=== PATIENT | female | born 1985 | race Caucasian/White ===

== ENCOUNTER 2016-07-06 10:23 | Emergency (ER) | payer OTHER ==
[~2016-07-06] VITALS: Ht 170.2 cm; Wt 140.9 kg
[2016-07-06 10:25] VITALS: TEMP 97.8
[2016-07-06] MEDS ORDERED: GLUCOPHAGE1000 MG PO (10:38)
[2016-07-06] MEDS ORDERED: VITAMIN D1000 IU (10:38)
[2016-07-06] MEDS ORDERED: FLEXERIL 1010 MG/TAB PO (11:41)
[2016-07-06] MEDS ORDERED: PREDNISONE20 MG PO (11:41)
[2016-07-06 12:15] VITALS: BP 131/66; PULSE 63
== END 2016-07-06 12:16 | disposition home or self-care (01) ==
LOC: COL.ER 10:23
DX: M46.1 Sacroiliitis, not elsewhere classified (principal); R51 Headache
CPT/HCPCS: J1885; J2360

== ENCOUNTER 2016-10-01 14:02 | Emergency (ER) | payer OTHER ==
[~2016-10-01] VITALS: Ht 170.2 cm; Wt 145.5 kg
[~2016-10-01 14:02] MED LIST: FLEXERIL 1010 MG/TAB PO; GLUCOPHAGE1000 MG PO; PREDNISONE20 MG PO; VITAMIN D1000 IU
[2016-10-01 14:05] VITALS: TEMP 98.2
[2016-10-01 14:55] LABS: PH 6 (5-8); URINE APPEARANCE Hazy; URINE BACTERIA None Seen /hpf; URINE BILIRUBIN Negative (NEGATIVE); URINE BLOOD 2+ (NEGATIVE); URINE COLOR Yellow; URINE GLUCOSE Negative (NEGATIVE); URINE KETONE Negative (NEGATIVE); URINE UROBILINOGEN Negative (NEGATIVE)
[2016-10-01 14:56] LABS: BASO % 0.3 % (0.0-2.0); GRAN # 4.1 (1.4-6.5); GRAN % 65.1 % (42.2-75.2); HEMATOCRIT 43.8 % (37.0-47.0); HEMOGLOBIN 14.6 g/dl (12.5-16.0); LYMPH # 1.6 (1.2-3.4); MEAN CELL VOLUME 91 fl (80.0-100.0); MEAN CORPUSCULAR HEMOGLOBIN 30 pg (27.0-31.0); MEAN CORPUSCULAR HGB CONC 33 g/dl (33.0-37.0); MEAN PLATELET VOLUME 10.5 fl (7.4-10.4); MONO # 0.5 (0.1-0.6); MONO % 8.4 % (1.7-9.3); PLATELET COUNT 238 K/mm3 (130-400); RED BLOOD COUNT 4.82 M/mm3 (4.10-5.30); REDCELL DISTRIBUTION WIDTH-CV 12.8 % (11.5-14.5); WHITE BLOOD COUNT 6.3 K/mm3 (4.8-10.8)
[2016-10-01 15:13] LABS: ADJUSTED CALCIUM 8.7 mg/dL (8.4-10.2); ALBUMIN 4.6 gm/dL (3.5-5.0); BILIRUBIN,TOTAL 0.6 mg/dL (0.0-1.0); CALCIUM 9.2 mg/dL (8.4-10.2); CREATININE, serum 0.66 mg/dL (0.52-1.25); POTASSIUM 4.1 mmol/L (3.4-5.0); TOTAL PROTEIN 7.7 gm/dL (6.4-8.2)
[2016-10-01] MEDS ORDERED: CEFTIN500 MG PO (16:39)
[2016-10-01 17:10] VITALS: BP 124/72; PULSE 73
== END 2016-10-01 17:14 | disposition home or self-care (01) ==
LOC: COL.ER 14:02
PROVIDERS: Emergency Medicine
DX: N39.0 Urinary tract infection, site not specified (principal)
CPT/HCPCS: J2765; J3010; J7030

== ENCOUNTER 2017-07-20 21:02 | Inpatient (IN) | payer OTHER ==
[~2017-07-20] VITALS: Ht 170.2 cm; Wt 160.2 kg
[~2017-07-20 21:02] MED LIST changes: +CEFTIN500 MG PO; +VITAMIN D 1001000 IU PO; -VITAMIN D1000 IU
[2017-07-20 21:09] VITALS: BP 131/76; PULSE 72; TEMP 97.8
[2017-07-21 00:45] VITALS: BP 132/65; PULSE 70; TEMP 98.3
[2017-07-21] MEDS ORDERED: GLUCOPHAGE500 MG/TAB PO (01:42)
[2017-07-21] MEDS ORDERED: AMOXICILLIN875 MG PO (01:44)
[2017-07-21] MEDS ORDERED: Birth Control PO (01:46)
[2017-07-21] MEDS ORDERED: anxiety med (01:47)
[2017-07-21] MEDS ORDERED: LEXAPRO20 MG PO (02:46)
[2017-07-21 03:22] VITALS: BP 114/46; PULSE 70; TEMP 98.3
[2017-07-21 06:45] LABS: BASO % 0.1 % (0.0-2.0); GRAN # 10.5 (1.4-6.5); GRAN % 88.3 % (42.2-75.2); HEMATOCRIT 38.5 % (37.0-47.0); HEMOGLOBIN 12.7 g/dl (12.5-16.0); LYMPH # 0.9 (1.2-3.4); LYMPH % 7.7 % (20.0-51.0); MEAN CELL VOLUME 92 fl (80.0-100.0); MEAN CORPUSCULAR HEMOGLOBIN 30 pg (27.0-31.0); MEAN CORPUSCULAR HGB CONC 33 g/dl (33.0-37.0); MEAN PLATELET VOLUME 10.6 fl (7.4-10.4); MONO # 0.4 (0.1-0.6); MONO % 3.6 % (1.7-9.3); PLATELET COUNT 250 K/mm3 (130-400); RED BLOOD COUNT 4.18 M/mm3 (4.10-5.30); REDCELL DISTRIBUTION WIDTH-CV 12.9 % (11.5-14.5)
[2017-07-21 06:59] LABS: CALCIUM 8.6 mg/dL (8.4-10.2); CREATININE, serum 0.54 mg/dL (0.52-1.25); POTASSIUM 4.1 mmol/L (3.4-5.0)
[2017-07-21 08:02] LABS: COLLECTION METHOD CLEAN CATCH
[2017-07-21 08:17] LABS: MUCOUS Present /lpf; PH 6 (5-8); URINE APPEARANCE Hazy; URINE BACTERIA Rare /hpf; URINE BILIRUBIN Negative (NEGATIVE); URINE BLOOD Negative (NEGATIVE); URINE COLOR Yellow; URINE GLUCOSE Negative (NEGATIVE); URINE KETONE Trace (NEGATIVE); URINE LEUKOCYTE ESTERASE Negative (NEGATIVE); URINE NITRATE Negative (NEGATIVE); URINE PROTEIN(semi-quant) 1+ (NEGATIVE); URINE UROBILINOGEN Negative (NEGATIVE)
[2017-07-21 08:26] LABS: TRICYCLIC ANTIDEPRESS URINE NEGATIVE
[2017-07-21 08:40] VITALS: BP 114/51; PULSE 73; TEMP 98.5
[2017-07-21 09:24] LABS: INR 1.1 (0.8-3.0); PROTHROMBIN TIME 12.6 SECONDS (9.7-12.8)
[2017-07-21 11:12] LABS: INFLUENZA A NEGATIVE; INFLUENZA B NEGATIVE
[2017-07-21] MEDS ORDERED: MONONESSA 35 MC1 TA1 (11:52)
[2017-07-21] MEDS ORDERED: ZOFRAN INJ4 MG/2 ML IV (15:07)
[2017-07-21 15:25] VITALS: BP 114/51; PULSE 73; TEMP 98.5
[2017-07-21 15:58] VITALS: BP 138/78; PULSE 68; TEMP 99.2
== END 2017-07-21 16:30 | disposition short-term general hospital (02) | DRG 65 ==
LOC: MEDICAL 21:02
PROVIDERS: Nurse Practitioner; Psychiatry & Neurology Neurology
DX: I63.9 Cerebral infarction, unspecified (principal); G95.89 Other specified diseases of spinal cord; M79.1 Myalgia; E28.2 Polycystic ovarian syndrome; R42 Dizziness and giddiness; G93.89 Other specified disorders of brain; F17.210 Nicotine dependence, cigarettes, uncomplicated; Z98.84 Bariatric surgery status
CPT/HCPCS: 99223-AI; A9585; J1644; J1885; J2405; J2550; J7030

== ENCOUNTER 2017-07-24 10:07 | Inpatient (IN) | payer OTHER ==
[~2017-07-24] VITALS: Ht 170.2 cm; Wt 161.5 kg
[~2017-07-24 10:07] MED LIST changes: +AMOXICILLIN875 MG PO; +Birth Control PO; +GLUCOPHAGE500 MG/TAB PO; +LEXAPRO20 MG PO; +MONONESSA 35 MC1 TA1; +ZOFRAN INJ4 MG/2 ML IV; +anxiety med
[2017-07-24] MEDS ORDERED: ELIQUIS 5MG PO ×2 (15:28→15:29)
[2017-07-24] MEDS ORDERED: LIPITOR 40MG TA40 MG PO (15:30)
[2017-07-24] MEDS ORDERED: LIDODERM 5% PATC1 EA TP (15:31)
[2017-07-24] MEDS ORDERED: REGLAN 10MG10 MG/TAB PO (15:33)
[2017-07-24] MEDS ORDERED: MELAT3MGTAB PO (15:34)
[2017-07-24] MEDS ORDERED: EMU OIL 1 ML1 ML (15:38)
[2017-07-24 15:41] VITALS: BP 114/62; PULSE 71; TEMP 98
[2017-07-24 18:00] VITALS: BP 124/67; PULSE 80; TEMP 97.7
[2017-07-24] MEDS ORDERED: ATIVAN 1MG T1 MG/TAB PO (21:07)
[2017-07-25 04:47] VITALS: BP 142/77; PULSE 71; TEMP 97.5
[2017-07-25 16:58] VITALS: BP 115/74; PULSE 76; TEMP 97.7
[2017-07-26 04:32] VITALS: BP 133/66; PULSE 81; TEMP 98.2
[2017-07-26 16:04] VITALS: BP 113/67; PULSE 87; TEMP 97.4
[2017-07-27 03:56] VITALS: BP 129/80; PULSE 87; TEMP 99
[2017-07-27 07:08] LABS: BASO % 0.3 % (0.0-2.0); EOS % 0.1 % (0-4.0); GRAN # 5.4 (1.4-6.5); HEMATOCRIT 38.9 % (37.0-47.0); HEMOGLOBIN 12.5 g/dl (12.5-16.0); LYMPH # 2.5 (1.2-3.4); LYMPH % 28.9 % (20.0-51.0); MEAN CELL VOLUME 94 fl (80.0-100.0); MEAN CORPUSCULAR HEMOGLOBIN 30 pg (27.0-31.0); MEAN CORPUSCULAR HGB CONC 32 g/dl (33.0-37.0); MEAN PLATELET VOLUME 10.5 fl (7.4-10.4); MONO # 0.6 (0.1-0.6); MONO % 7.2 % (1.7-9.3); PLATELET COUNT 246 K/mm3 (130-400); RED BLOOD COUNT 4.14 M/mm3 (4.10-5.30)
[2017-07-27 07:26] LABS: CALCIUM 8.9 mg/dL (8.4-10.2); CREATININE, serum 0.64 mg/dL (0.52-1.25); MAGNESIUM 1.7 mg/dL (1.6-2.3); POTASSIUM 4.1 mmol/L (3.4-5.0)
[2017-07-27 17:10] VITALS: BP 128/66; PULSE 93; TEMP 97.6
[2017-07-28 05:17] VITALS: BP 117/69; PULSE 100; TEMP 98.1
[2017-07-28 18:00] VITALS: BP 103/51; PULSE 61; TEMP 98.7
[2017-07-29 02:32] VITALS: BP 107/57; PULSE 94; TEMP 98.5
[2017-07-29 16:01] VITALS: BP 113/43; PULSE 61; TEMP 97.4
[2017-07-30 05:08] VITALS: BP 117/58; PULSE 83; TEMP 98.4
[2017-07-30 13:57] VITALS: BP 109/63
[2017-07-30 16:15] VITALS: BP 107/76; PULSE 100; TEMP 97.6
[2017-07-31 05:26] VITALS: BP 122/71; PULSE 90; TEMP 97.6
[2017-07-31 17:36] VITALS: BP 127/66; PULSE 98; TEMP 97.6
[2017-08-01 06:06] VITALS: BP 128/75; PULSE 90; TEMP 98.3
[2017-08-01 17:18] VITALS: BP 128/76; PULSE 100; TEMP 98.1
[2017-08-02 03:54] VITALS: BP 111/58; PULSE 87; TEMP 98.1
[2017-08-02 17:04] VITALS: BP 118/72; PULSE 103; TEMP 97.5
[2017-08-02 21:00] VITALS: BP 104/72; PULSE 100
[2017-08-03 04:56] VITALS: BP 133/72; PULSE 86; TEMP 98.5
[2017-08-03 16:22] VITALS: BP 120/70; PULSE 81; TEMP 98.2
[2017-08-04 05:54] VITALS: BP 119/64; PULSE 84; TEMP 98.1
[2017-08-04 15:13] VITALS: BP 97/43; PULSE 78; TEMP 98.3
[2017-08-05 03:53] VITALS: BP 114/60; PULSE 80; TEMP 97.8
[2017-08-05 15:17] VITALS: BP 107/55; PULSE 90; TEMP 97.8
[2017-08-06 06:38] VITALS: BP 126/68; PULSE 86; TEMP 98.2
[2017-08-06 16:09] VITALS: BP 127/64; PULSE 89; TEMP 97.4
[2017-08-07 04:15] VITALS: BP 112/56; PULSE 78; TEMP 98.1
[2017-08-07] MEDS ORDERED: AMOXICILLIN 50500 MG PO (11:09)
[2017-08-07] MEDS ORDERED: ELIQUIS 5MG PO (11:09)
[2017-08-07] MEDS ORDERED: TYLENOL 325MG325 MG PO (11:09)
[2017-08-07] MEDS ORDERED: ZOFRAN ODT4 MG PO (11:11)
[2017-08-07] MEDS ORDERED: ATIVAN 1MG T1 MG/TAB PO (11:12)
[2017-08-07] MEDS ORDERED: LIDODERM 5% PATC1 EA TP (11:12)
[2017-08-07] MEDS ORDERED: DESENEX TP (11:12)
[2017-08-07] MEDS ORDERED: LIPITOR 40MG TA40 MG PO (14:58)
== END 2017-08-07 15:12 | disposition home or self-care (01) | DRG 56 ==
PROVIDERS: Internal Medicine
DX: I69.393 Ataxia following cerebral infarction (principal); I77.74 Dissection of vertebral artery; Z68.43 Body mass index [BMI] 50.0-59.9, adult; I69.312 Visuospatial deficit and spatial neglect following cerebral infarction; I69.391 Dysphagia following cerebral infarction; E66.01 Morbid (severe) obesity due to excess calories; R13.10 Dysphagia, unspecified; F41.9 Anxiety disorder, unspecified; H66.92 Otitis media, unspecified, left ear
CPT/HCPCS: 99222-AI; 99232-AI; 99239

== ENCOUNTER 2017-09-07 14:36 | Emergency (ER) | payer OTHER ==
[~2017-09-07] VITALS: Ht 170.2 cm; Wt 163.6 kg
[~2017-09-07 14:36] MED LIST changes: +AMOXICILLIN 50500 MG PO; +ATIVAN 1MG T1 MG/TAB PO; +DESENEX TP; +ELIQUIS 5MG PO; +EMU OIL 1 ML1 ML; +LIDODERM 5% PATC1 EA TP; +LIPITOR 40MG TA40 MG PO; +MELAT3MGTAB PO; +REGLAN 10MG10 MG/TAB PO; +TYLENOL 325MG325 MG PO; +ZOFRAN ODT4 MG PO
[2017-09-07 14:43] VITALS: TEMP 98.1
[2017-09-07 15:49] LABS: BASO % 0.3 % (0.0-2.0); EOS # 0.2 (0.0-0.7); GRAN % 58.1 % (42.2-75.2); HEMOGLOBIN 13.4 g/dl (12.5-16.0); LYMPH # 2.1 (1.2-3.4); LYMPH % 30.4 % (20.0-51.0); MEAN CELL VOLUME 95 fl (80.0-100.0); MEAN CORPUSCULAR HEMOGLOBIN 31 pg (27.0-31.0); MEAN CORPUSCULAR HGB CONC 33 g/dl (33.0-37.0); MEAN PLATELET VOLUME 10.2 fl (7.4-10.4); MONO # 0.6 (0.1-0.6); MONO % 7.9 % (1.7-9.3); PLATELET COUNT 221 K/mm3 (130-400); RED BLOOD COUNT 4.34 M/mm3 (4.10-5.30)
[2017-09-07 15:58] LABS: BILIRUBIN,TOTAL 0.3 mg/dL (0.0-1.0); CALCIUM 9.2 mg/dL (8.4-10.2); CREATININE, serum 0.65 mg/dL (0.52-1.25); POTASSIUM 4.7 mmol/L (3.4-5.0); TOTAL PROTEIN 7.2 gm/dL (6.4-8.2)
[2017-09-07 20:30] VITALS: BP 115/70; PULSE 76
== END 2017-09-07 20:30 | disposition home or self-care (01) ==
LOC: COL.ER 14:36
PROVIDERS: Emergency Medicine
DX: R42 Dizziness and giddiness (principal); Z86.73 Personal history of transient ischemic attack (TIA), and cerebral infarction without residual deficits
CPT/HCPCS: J2550; J7030

== ENCOUNTER 2017-11-12 16:15 | Outpatient (RCR) | payer OTHER | END 2017-11-16 | disposition home or self-care (01) | LOC: MKS.ESL.PT | DX: I63.9 Cerebral infarction, unspecified (principal); I77.74 Dissection of vertebral artery; H55.00 Unspecified nystagmus ==

== ENCOUNTER 2017-11-27 16:15 | Outpatient (RCR) | payer OTHER ==
[2017-12-25] MEDS ORDERED: GLUCOPHAGE1000 MG PO (22:31)
== END 2018-02-23 | disposition home or self-care (01) ==
LOC: MKS.ESL.PT
DX: I69.998 Other sequelae following unspecified cerebrovascular disease (principal); R26.89 Other abnormalities of gait and mobility

== ENCOUNTER → 2017-12-09 | Outpatient (CLI) | payer OTHER | LOC: COL.RAD 13:08 | DX: M47.817 Spondylosis without myelopathy or radiculopathy, lumbosacral region (principal); M43.17 Spondylolisthesis, lumbosacral region ==

== ENCOUNTER 2017-12-25 22:00 | Emergency (ER) | payer OTHER ==
[~2017-12-25] VITALS: Ht 170.2 cm; Wt 168.2 kg
[2017-12-25 22:06] VITALS: TEMP 98.5
[2017-12-25] MEDS ORDERED: GLUCOPHAGE1000 MG PO (22:31)
[2017-12-25 23:28] VITALS: BP 138/90; PULSE 98
== END 2017-12-25 23:38 | disposition home or self-care (01) ==
LOC: COL.ER 22:00
DX: S00.03XA Contusion of scalp, initial encounter (principal); Z86.73 Personal history of transient ischemic attack (TIA), and cerebral infarction without residual deficits; W07.XXXA Fall from chair, initial encounter; Y92.009 Unspecified place in unspecified non-institutional (private) residence as the place of occurrence of the external cause

== ENCOUNTER → 2018-02-17 | Outpatient (CLI) | payer OTHER | LOC: MHCPAIN 15:11 | DX: G89.29 Other chronic pain (principal); M47.817 Spondylosis without myelopathy or radiculopathy, lumbosacral region; M53.3 Sacrococcygeal disorders, not elsewhere classified | CPT/HCPCS: G0463 ==

== ENCOUNTER 2018-06-03 16:15 | Outpatient (RCR) | payer OTHER | END 2018-06-09 | disposition home or self-care (01) | LOC: WSPT | DX: M53.3 Sacrococcygeal disorders, not elsewhere classified (principal); M47.817 Spondylosis without myelopathy or radiculopathy, lumbosacral region; G89.29 Other chronic pain ==

== ENCOUNTER 2018-09-07 13:30 | Outpatient (RCR) | payer OTHER | END 2018-09-08 | disposition home or self-care (01) | LOC: WSOT | DX: I77.74 Dissection of vertebral artery (principal); H51.8 Other specified disorders of binocular movement; Z79.01 Long term (current) use of anticoagulants; M47.817 Spondylosis without myelopathy or radiculopathy, lumbosacral region; M53.3 Sacrococcygeal disorders, not elsewhere classified; G89.29 Other chronic pain; Z79.84 Long term (current) use of oral hypoglycemic drugs; Z79.899 Other long term (current) drug therapy ==

== ENCOUNTER 2018-09-21 15:48 | Emergency (ER) | payer OTHER ==
[~2018-09-21] VITALS: Ht 170.2 cm; Wt 181.4 kg
[2018-09-21 15:55] VITALS: TEMP 97.5
[2018-09-21 16:25] LABS: BASO % 0.5 % (0.0-2.0); EOS # 0.1 (0.0-0.7); EOS % 0.8 % (0-4.0); GRAN # 5.2 (1.4-6.5); GRAN % 64.6 % (42.2-75.2); HEMATOCRIT 41.6 % (37.0-47.0); HEMOGLOBIN 13.2 g/dl (12.5-16.0); LYMPH # 2.2 (1.2-3.4); MEAN CELL VOLUME 90 fl (80.0-100.0); MEAN CORPUSCULAR HEMOGLOBIN 28 pg (27.0-31.0); MEAN CORPUSCULAR HGB CONC 32 g/dl (33.0-37.0); MEAN PLATELET VOLUME 10.5 fl (7.4-10.4); MONO # 0.6 (0.1-0.6); PLATELET COUNT 302 K/mm3 (130-400); RED BLOOD COUNT 4.65 M/mm3 (4.10-5.30); REDCELL DISTRIBUTION WIDTH-CV 13.5 % (11.5-14.5)
[2018-09-21 16:45] LABS: ALBUMIN 4.2 gm/dL (3.5-5.0); BILIRUBIN,TOTAL 0.4 mg/dL (0.0-1.0); CALCIUM 9.6 mg/dL (8.4-10.2); CREATININE, serum 0.62 mg/dL (0.52-1.25); POTASSIUM 4.5 mmol/L (3.4-5.0); TOTAL PROTEIN 7.6 gm/dL (6.4-8.2)
[2018-09-21 16:48] LABS: C-REACTIVE PROTEIN 0.5 mg/dL (0.0-0.9)
[2018-09-21 17:46] VITALS: BP 105/78; PULSE 82
== END 2018-09-21 17:47 | disposition home or self-care (01) ==
LOC: COL.ER 15:48
PROVIDERS: Family Medicine
DX: R42 Dizziness and giddiness (principal); Z86.73 Personal history of transient ischemic attack (TIA), and cerebral infarction without residual deficits
CPT/HCPCS: Q9967

== ENCOUNTER 2018-10-07 12:18 | Emergency (ER) | payer OTHER ==
[~2018-10-07] VITALS: Ht 170.2 cm; Wt 180.9 kg
[2018-10-07 12:23] VITALS: TEMP 98.4
[2018-10-07 12:53] LABS: BASO % 0.4 % (0.0-2.0); EOS # 0.1 (0.0-0.7); EOS % 0.6 % (0-4.0); GRAN # 6.3 (1.4-6.5); GRAN % 74.5 % (42.2-75.2); HEMOGLOBIN 13.1 g/dl (12.5-16.0); LYMPH # 1.5 (1.2-3.4); LYMPH % 17.7 % (20.0-51.0); MEAN CELL VOLUME 89 fl (80.0-100.0); MEAN CORPUSCULAR HEMOGLOBIN 29 pg (27.0-31.0); MEAN CORPUSCULAR HGB CONC 32 g/dl (33.0-37.0); MEAN PLATELET VOLUME 10.3 fl (7.4-10.4); MONO # 0.6 (0.1-0.6); MONO % 6.7 % (1.7-9.3); PLATELET COUNT 272 K/mm3 (130-400); REDCELL DISTRIBUTION WIDTH-CV 13.7 % (11.5-14.5)
[2018-10-07 12:56] LABS: INR 1.1 (0.8-3.0); PROTHROMBIN TIME 12.2 SECONDS (9.7-12.8)
[2018-10-07 12:59] LABS: PARTIAL THROMBOPLASTIN TIME 46.3 SECONDS (26.0-37.0)
[2018-10-07 13:00] LABS: ALANINE AMINOTRANSFERASE 20 U/L (9-52); ALBUMIN 4.3 gm/dL (3.5-5.0); ALKALINE PHOSPHATASE 108 U/L (50-136); ANION GAP 10 mmol/L (7-16); AST,SGOT 19 U/L (15-37); BILIRUBIN,TOTAL 0.5 mg/dL (0.0-1.0); BLOOD UREA NITROGEN 12 mg/dL (7-17); C-REACTIVE PROTEIN 0.6 mg/dL (0.0-0.9); CALCIUM 9.3 mg/dL (8.4-10.2); CARBON DIOXIDE 24 mmol/L (22-30); CHLORIDE 104 mmol/L (98-107); CREATININE, serum 0.59 (0.52-1.25); GLUCOSE 104 mg/dL (74-106); POTASSIUM 4.2 mmol/L (3.4-5.0); SODIUM 138 mmol/L (137-145); TOTAL PROTEIN 7.7 gm/dL (6.4-8.2)
[2018-10-07 13:05] LABS: D-DIMER < 200.00 ng/mLDDu (200-230)
[2018-10-07 13:09] LABS: TROPONIN-I < 0.012 ng/mL (0.000-0.035)
[2018-10-07 13:15] LABS: ERYTHROCYTE SEDIMENTATION RATE 13 mm/hr (0-20)
[2018-10-07] MEDS ORDERED: AMOXICILLIN 8751 TAB PO (14:09)
[2018-10-07 14:37] LABS: COLLECTION METHOD CLEAN CATCH
[2018-10-07 14:39] VITALS: BP 124/78; PULSE 74
[2018-10-07 14:50] LABS: MUCOUS Present /lpf; PH 5 (5-8); URINE APPEARANCE Hazy; URINE BACTERIA Rare /hpf; URINE BILIRUBIN Negative (NEGATIVE); URINE BLOOD 3+ (NEGATIVE); URINE COLOR Yellow; URINE GLUCOSE Negative (NEGATIVE); URINE KETONE Negative (NEGATIVE); URINE LEUKOCYTE ESTERASE Trace (NEGATIVE); URINE NITRATE Negative (NEGATIVE); URINE PROTEIN(semi-quant) Negative (NEGATIVE); URINE UROBILINOGEN Negative (NEGATIVE)
[2018-10-08] MEDS ORDERED: OMNICEF 300MG300 MG PO (03:14)
== END 2018-10-07 14:42 | disposition home or self-care (01) ==
LOC: COL.ER 12:18
PROVIDERS: Family Medicine
DX: J32.9 Chronic sinusitis, unspecified (principal); R53.1 Weakness

== ENCOUNTER 2018-10-13 10:15 | Outpatient (RCR) | payer OTHER ==
[~2018-10-13 10:15] MED LIST changes: +AMOXICILLIN 8751 TAB PO; +OMNICEF 300MG300 MG PO
== END 2018-10-20 16:03 | disposition home or self-care (01) ==
LOC: WSOT 10:15
DX: I77.74 Dissection of vertebral artery (principal); M53.3 Sacrococcygeal disorders, not elsewhere classified; H51.8 Other specified disorders of binocular movement; Z90.49 Acquired absence of other specified parts of digestive tract; Z98.84 Bariatric surgery status

== ENCOUNTER 2019-06-10 12:00 | Outpatient (RCR) | payer OTHER | END 2019-08-16 | disposition home or self-care (01) | LOC: WSOT | DX: G95.0 Syringomyelia and syringobulbia (principal); Z95.1 Presence of aortocoronary bypass graft ==

== ENCOUNTER 2019-07-05 13:00 | Outpatient (RCR) | payer OTHER | END 2019-07-11 | disposition still patient (30) | LOC: WSC | DX: R29.898 Other symptoms and signs involving the musculoskeletal system (principal) ==